=== PATIENT | male | born 1960 | race Caucasian/White ===

== ENCOUNTER 2018-06-03 11:44 | Day surgery (SDC) | payer OTHER ==
[~2018-06-03 11:44] MED LIST: CLINDAMYCIN 600 MG/D5W (PMX) 50 ML IVPB; CLINDAMYCIN 900 MG/50 ML D5W IVPB IVPB; DEXAMETHASONE 4 MG/ML 5 ML INJ; ONDANSETRON 4 MG INJ; SOD CHLORIDE 0.9% 1,000 ML IV; SUCCINYLCHOLINE CHLORIDE 100 MG/5 ML SYG IV
[2018-06-03 13:06] LABS: ADD MAN DIFF? NO
[2018-06-03 13:07] LABS: WHITE BLOOD COUNT 6.4 10^3/ul (4.8-10.8)
[2018-06-03 13:07] LABS: BASOPHIL # 0.1 10^3/ul (0.0-0.1); BASOPHILS % 0.8 % (0.0-2.0); EOSINOPHILS # 0.2 10^3/ul (0.0-0.5); EOSINOPHILS % 2.5 % (0.0-7.0); HEMATOCRIT 43.2 % (42.0-52.0); HEMOGLOBIN 14.5 g/dl (14.0-18.0); LYMPHOCYTES # 1.7 10^3/ul (0.8-2.9); LYMPHOCYTES % 26.8 % (15.0-51.0); MEAN CORPUSCULAR HGB CONC 33.6 g/dl (32.0-37.0); MEAN CORPUSCULAR VOLUME 86.4 fl (82.0-101.0); MEAN PLATELET VOLUME 11.4 fl (7.4-10.4); MONOCYTE # 0.4 10^3/ul (0.3-0.9); MONOCYTES % 6.9 % (0.0-11.0); NEUTROPHILS % 62.7 % (39.0-77.0); PLATELET COUNT 278 10^3/UL (140-415); RED CELL DISTRIBUTION WIDTH 12.4 % (11.5-14.5)
[2018-06-03 13:27] LABS: ALANINE AMINOTRANSFERASE 27 IU/L (13-69); ALBUMIN 4.3 g/dl (3.3-4.9); ALBUMIN/GLOBULIN RATIO 1.65; ALKALINE PHOSPHATASE 48 IU/L (42-121); ANION GAP 10 (5-13); ASPARTATE AMINO TRANSFERASE 19 IU/L (15-46); BILIRUBIN,INDIRECT 0.9 mg/dl (0-1.1); BILIRUBIN,TOTAL 0.9 mg/dl (0.2-1.3); BLOOD UREA NITROGEN 15 mg/dl (7-20); CALCIUM 9.5 mg/dl (8.4-10.2); CARBON DIOXIDE 25 mmol/L (21-31); CHLORIDE 104 mmol/L (97-110); Estimated GFR > 60 mL/min (>60); GLUCOSE 176 mg/dl (70-220); POTASSIUM 4.2 mmol/L (3.5-5.1); SODIUM 139 mmol/L (135-144); TOTAL PROTEIN 6.9 g/dl (6.1-8.1)
[2018-06-03 13:29] LABS: INR 0.92; PROTIME 12.5 Sec (11.9-14.9)
[2018-06-03 13:30] LABS: PARTIAL THROMBOPLASTIN TIME 28.6 Sec (23.0-35.0)
[2018-06-03] MEDS ORDERED: FENTAnyl 50 MCG/ML VIAL (14:56)
[2018-06-03] MEDS ORDERED: MIDAZOLAM 1 MG/ML 2 ML INJ (14:56)
[2018-06-03] MEDS ORDERED: METOCLOPRAMIDE 10 MG INJ (14:58)
[2018-06-03] MEDS ORDERED: LIDOCAINE 2% (SDV) 5 ML INJ (14:59)
[2018-06-03] MEDS ORDERED: PROPOFOL 20 ML (14:59)
[2018-06-03] MEDS ORDERED: BACITRACIN 0.9 GM OINT (15:37)
[2018-06-03] MEDS ORDERED: MEPERIDINE 25 MG INJ IV (16:00)
[2018-06-03] MEDS ORDERED: LEVALBUTEROL (NEB) 1.25 MG/0.5 ML AMP HHN (16:00)
[2018-06-03] MEDS ORDERED: HYDROmorphONE 1 MG/5 ML IV SYRINGE IV ×2 (16:00)
[2018-06-03] MEDS ORDERED: MIDAZOLAM 1 MG/ML 2 ML INJ IV (16:00)
[2018-06-03] MEDS ORDERED: DIPHENHYDRAMINE 50 MG INJ IV (16:00)
[2018-06-03] MEDS ORDERED: hydrALAzine 20 MG INJ IV (16:00)
[2018-06-03] MEDS ORDERED: FENTAnyl 50 MCG/ML VIAL IV ×2 (16:00)
[2018-06-03] MEDS ORDERED: LABETALOL HCL 20MG INJ IV (16:00)
[2018-06-03] MEDS: BUPIVACAINE 0.5% (SDV) 30 ML INJ (16:37)
[2018-06-03] MEDS: LIDOCAINE 1%/EPI (1:100,000) (MDV) 20 ML (16:37)
[2018-06-03] MEDS ORDERED: morphine 2 MG INJ IV (17:00)
[2018-06-03] MEDS ORDERED: OXYCODONE/ACETAMINOPHEN (5/325) TAB PO (17:00)
[2018-06-03] MEDS ORDERED: ONDANSETRON 4 MG INJ IV (17:00)
[2018-06-03] MEDS ORDERED: IBUPROFEN 600 MG TAB PO (17:00)
[2018-06-03] MEDS: ONDANSETRON 4 MG INJ IV (17:37)
[2018-06-03] MEDS: OXYCODONE/ACETAMINOPHEN (5/325) TAB PO (17:39)
[2018-06-03] MEDS: KETOROLAC 30 MG INJ IV (17:46)
[2018-06-03] MEDS: HYDROmorphONE 1 MG/5 ML IV SYRINGE IV (18:09)
== END 2018-06-03 19:29 | disposition home or self-care (01) ==
LOC: SDS 11:44
DX: K64.8 Other hemorrhoids (principal); K64.4 Residual hemorrhoidal skin tags; I10 Essential (primary) hypertension; E11.9 Type 2 diabetes mellitus without complications; E78.5 Hyperlipidemia, unspecified
CPT/HCPCS: 46255; 80053; 82962; 85025; 85610; 85730; 88304